=== PATIENT | female | born 1965 | race African-American/Black ===

== ENCOUNTER 2016-12-05 09:52 | Day surgery (SDC) | payer OTHER ==
[2016-12-02 14:35] VITALS: BMI 26.3
[2016-12-05] MEDS ORDERED: morphine CARPU-JECT 10 MG/1 ML DISP.SYRIN ONE (13:13)
[2016-12-05] MEDS ORDERED: BUPIVACAINE HCL/PF 0.5% (5MG/ML) 10 ML VIAL ONE (13:13)
[2016-12-05] MEDS ORDERED: MIDAZOLAM HCL 2 MG/2 ML SINGLE DOSE VIAL ONE (13:14)
[2016-12-05] MEDS ORDERED: ceFAZolin SODIUM 1 GM VIAL ONE (13:44)
[2016-12-05] MEDS ORDERED: ONDANSETRON 4 MG/2 ML VIAL ONE (13:44)
[2016-12-05] MEDS ORDERED: DEXAMETHASONE SOD PHOSPHATE 4 MG/1 ML VIAL ONE (13:45)
[2016-12-05] MEDS ORDERED: DESFLURANE GAS 240 ML BOTTLE IH ONE (14:01)
[2016-12-05] MEDS: HYDROmorphone HCL CARPU-JECT 1 MG/1 ML DISP.SYRIN IVPUSH PRN ×4 (14:30→15:00)
[2016-12-05] MEDS ORDERED: HYDROmorphone HCL CARPU-JECT 1 MG/1 ML DISP.SYRIN ONE ×2 (14:30→14:49)
[2016-12-05 18:03] VITALS: BP 145/85; PULSE 74; TEMP 97.9
--- NOTE | 2016-12-07 09:27 | OP ---
DATE OF OPERATION: 12/05/2016 PREOPERATIVE DIAGNOSIS: Torn medial meniscus to the right knee. POSTOPERATIVE DIAGNOSES: Torn medial and lateral meniscus to the right knee with hypertrophic synovium, joint debris, and chondromalacia and right osteochondral defect, lateral femoral condyle. PROCEDURE PERFORMED: Operative arthroscopy of the right knee with partial medial and lateral meniscectomy, chondromalacia, synovectomy, and joint debridement and microfracture technique with local stem recruitment for osteochondral defect. SURGEON: Cam Santacruz MD ARMATURE AND ROTOR WINDER: LUCINDA Brown ANESTHESIOLOGIST: Attila Esquivel MD ANESTHESIA: General anesthesia. DESCRIPTION OF PROCEDURE: The procedure consisted of the patient being brought into the operating room and gently transferred from the stretcher to the OR table. With all bony prominences well padded, the right knee was prepared and draped in sterile fashion. The patient was given intravenous antibiotics and copious irrigation throughout the procedure to minimize the risks of infection. Complete risks and benefits discussion was conducted with the patient which were inclusive o but not limited to the risks of infection, bleeding, paralysis, increased pain, and the need for repeat surgery. The patient was given the opportunity to ask questions, stated understanding of the procedure and agreed to proceed with the surgical treatment. Surgical timeout was initiated. Following sterile preparation and draping of the right leg, the leg was exsanguinated using an Esmarch bandage, and a tourniquet was inflated to 350 mmHg. Suprapatellar, median and lateral joint line portals were used to introduce the arthroscope and arthroscopic instruments. The suprapatellar pouch was examined. There was noted to be hypertrophic synovium in the suprapatellar pouch. Partial synovectomy was performed. The anterior surface of the patella had damage consistent with chondromalacia and was smoothed using shaver and radiofrequency wand. Medial and lateral gutters were without plica or loose body. Medial meniscus was found to have a tear of the posterior horn and was resected using shaver and radiofrequency wand. Intercondylar region was found to have joint debris and joint debridement was performed. Lateral meniscus was found to have a tear of the posterior horn, and this was resected using a shaver and radiofrequency wand. The intercondylar region was noted to have a 1 cm in diameter osteochondral defect. This was debrided on the lateral aspect of the intercondylar region. This was debrided and microfracture technique was used using boy awls of appropriate angle and shape were used to create a pattern of small perforations allowing stem cells to be recruited and to fill the defect This was debrided. The wounds were then copiously irrigated with sterile saline irrigant. Wounds were closed with 4-0 undyed Vicryl followed by Steri-Strips, Xeroform, 4 x 4's, sterile Webril as well as Crow bandage and a knee immobilizer. Tourniquet was deflated after approximately 20 minutes of surgery time. There were no intraoperative complications. The patient tolerated the procedure well. Kristine [id number]
== END 2016-12-05 16:55 | disposition home or self-care (01) ==
LOC: FASU 09:52
PROVIDERS: ATTEND Orthopaedic Surgery
PROC: 0SBC4ZZ Excision of Right Knee Joint, Percutaneous Endoscopic Approach (ICD-10-PCS; 2016-12-05)
PROC: 0SQC4ZZ Repair Right Knee Joint, Percutaneous Endoscopic Approach (ICD-10-PCS; 2016-12-05)
PROC: 0SBC4ZZ Excision of Right Knee Joint, Percutaneous Endoscopic Approach (ICD-10-PCS; principal; 2016-12-05 13:51)
DX: S83.241A Other tear of medial meniscus, current injury, right knee, initial encounter (principal); S83.281A Other tear of lateral meniscus, current injury, right knee, initial encounter; M94.261 Chondromalacia, right knee; M21.861 Other specified acquired deformities of right lower leg
CPT/HCPCS: 29879; 29880; G0289; 84703; 94760